=== PATIENT | female | born 1940 | race Caucasian/White ===

== ENCOUNTER 2017-11-04 08:50 | Emergency (ER) | payer MEDICARE, BC ==
[2017-11-04] MEDS: Sodium Chloride 0.9% 1,000 ML IV SCH ×2 (09:51→10:53)
--- NOTE | 2017-11-04 09:54 | EDM.PDOC ---
ED HPI GENERAL MEDICAL PROBLEM - General Chief Complaint: Gastrointestinal Problem Stated Complaint: DIAHRREA/DEHYDRATED Time Seen by Provider: 11/04/17 09:50 Source of Information: Reports: Patient History Limitations: Reports: No Limitations - History of Present Illness INITIAL COMMENTS - FREE TEXT/NARRATIVE: pt arrived with ahistory of sig diarrhea since yesterday. She has been having about 5 stools per day. She has not been vomiting. Onset: Gradual, Other ( started on Friday. ) Duration: Hour(s): Location: Reports: Abdomen Associated Symptoms: Reports: No Other Symptoms, Other ( diarrhea. ) Lower Abdominal Pain Score (Numeric/FACES): 2 - Related Data Allergies Allergy/AdvReac Type Severity Reaction Status Date / Time No Known Allergies Allergy Verified 10/24/14 08:03 Home Meds: Home Meds Clopidogrel Bisulfate [Clopidogrel] 75 mg PO DAILY 11/04/17 [History] Ezetimibe 10 mg PO DAILY 11/04/17 [History] Metoprolol Succinate [Toprol XL] 25 mg PO DAILY 11/04/17 [History] Simvastatin [Zocor] 80 mg PO DAILY 11/04/17 [History] Past Medical History Cardiovascular History: Reports: Hypertension [employer] History: Reports: - Past Surgical History Cardiovascular Surgical History: Reports: Carotid Stents GI Surgical History: Reports: Hernia, Abdominal Musculoskeletal Surgical History: Reports: Knee Replacement Social & Family History - Tobacco Use Smoking Status *Q: Light Tobacco Smoker Years of Tobacco use: 50 Packs/Tins Daily: 1 - Caffeine Use Caffeine Use: Reports: Coffee - Recreational Drug Use Recreational Drug Use: No ED ROS GENERAL - Review of Systems Review Of Systems: See Below Constitutional: Reports: No Symptoms HEENT: Reports: No Symptoms Respiratory: Reports: No Symptoms Cardiovascular: Reports: No Symptoms Endocrine: Reports: No Symptoms GI/Abdominal: Reports: Diarrhea ED EXAM, GI/ABD - Physical Exam Exam: See Below Text/Narrative:: pt arrived after having diarrhea since last friday. She is feeling on the dry side. Exam Limited By: No Limitations General Appearance: Alert, Mild Distress, Other ( Pt is having 5-6 stools per day. ) Ears: Normal TMs Nose: Normal Inspection Throat/Mouth: Normal Inspection Head: Atraumatic Neck: Normal Inspection Respiratory/Chest: No Respiratory Distress Cardiovascular: Regular Rate, Rhythm GI/Abdominal Exam: Soft, Non-Tender (Female) Exam: Deferred Rectal (Female) Exam: Deferred Back Exam: Normal Inspection Extremities: Normal Inspection Neurological: Alert, Oriented, Normal Cognition Psychiatric: Normal Affect Course - Vital Signs Last Recorded V/S: Last Vital Signs Temp 36.7 C 11/04/17 09:23 Pulse 86 11/04/17 09:23 Resp 16 11/04/17 09:23 BP 141/82 H 11/04/17 09:23 Pulse Ox 95 11/04/17 09:23 - Orders/Labs/Meds Orders: Active Orders 24 hr Category Date Time Status CLOSTRIDIUM DIFFICILE BY PCR [RM] Stat Lab 11/04/17 09:56 Ordered UA W/MICROSCOPIC [URIN] Urgent Lab 11/04/17 09:43 Ordered Sodium Chloride 0.9% [Normal Saline] 1,000 ml Med 11/04/17 09:45 Active IV ASDIRECTED Sodium Chloride 0.9% [Normal Saline] 1,000 ml Med 11/04/17 10:45 Active IV ASDIRECTED Medication Orders Sodium Chloride (Normal Saline) 1,000 mls @ 999 mls/hr IV ASDIRECTED DEN Last Infusion: 11/04/17 10:52 Dose: 999 mls/hr Admin: 11/04/17 09:51 Dose: 999 mls/hr Sodium Chloride (Normal Saline) 1,000 mls @ 999 mls/hr IV ASDIRECTED DEN Last Admin: 11/04/17 10:53 Dose: 999 mls/hr Labs: Laboratory Tests 11/04/17 11/04/17 11/04/17 Range/Units 09:49 09:49 10:14 WBC 5.7 (4.5-11.0) K/uL RBC 4.69 (3.30-5.50) M/uL Hgb 15.2 H (12.0-15.0) g/dL Hct 42.3 (36.0-48.0) % MCV 90 (80-98) fL MCH 32 H (27-31) pg MCHC 36 (32-36) % Plt Count 265 (150-400) K/uL Neut % (Auto) 73 H (36-66) % Lymph % (Auto) 17 L (24-44) % [place] % (Auto) 9 H (2-6) % Eos % (Auto) 1 L (2-4) % Baso % (Auto) 0 (0-1) % Sodium 136 L (140-148) mmol/L Potassium 3.3 L (3.6-5.2) mmol/L Chloride 98 L (100-108) mmol/L Carbon Dioxide 23 (21-32) mmol/L Anion Gap 18.3 H (5.0-14.0) mmol/L BUN 14 (7-18) mg/dL Creatinine 0.8 (0.6-1.0) mg/dL Est Cr Clr Drug Dosing 46.58 mL/min Estimated GFR (MDRD) > 60 (>60) Glucose 99 (74-106) mg/dL Calcium 8.7 (8.5-10.1) mg/dL Total Bilirubin 0.5 (0.2-1.0) mg/dL AST 56 H (15-37) U/L ALT 91 H (12-78) U/L Alkaline Phosphatase 66 (46-116) U/L Total Protein 7.0 (6.4-8.2) g/dL Albumin 3.6 (3.4-5.0) g/dL Globulin 3.4 (2.3-3.5) g/dL Albumin/Globulin Ratio 1.1 L (1.2-2.2) Lipase 83 (73-393) U/L Meds: Medications Generic Name Dose Route Start Last Admin Trade Name Freq PRN Reason Stop Dose Admin Sodium Chloride 1,000 mls @ 999 mls/hr 11/04/17 09:45 11/04/17 10:52 Normal Saline IV Infused ASDIRECTED DEN Infusion Sodium Chloride 1,000 mls @ 999 mls/hr 11/04/17 10:45 11/04/17 10:53 Normal Saline IV 999 mls/hr ASDIRECTED DEN Administration Discontinued Medications Generic Name Dose Route Start Last Admin Trade Name Freq PRN Reason Stop Dose Admin Loperamide HCl 4 mg 11/04/17 10:15 11/04/17 10:39 Imodium PO 11/04/17 10:16 4 mg ONETIME ONE Administration - Re-Assessments/Exams Free Text/Narrative Re-Assessment/Exam: 11/04/17 11:18 pt did show mild dehydration, She has a positive clostrium diff. Departure - Departure Time of Disposition: 11:19 Disposition: Home, Self-Care 01 Condition: Fair Clinical Impression: Clostridium difficile diarrhea - Discharge Information Referrals: Alice Argueta PA [Primary Care Provider] - Forms: ED Department Discharge Care Plan Goals: push fluids, eat lite until diarrhea improves. use yogurt or probiotic, vancomycin 250mg qid for 10 days, see regular in 5-6 days - My Orders Last 24 Hours: My Active Orders 11/04/17 09:43 UA W/MICROSCOPIC [URIN] Urgent 11/04/17 09:45 Sodium Chloride 0.9% [Normal Saline] 1,000 ml IV ASDIRECTED 11/04/17 09:56 CLOSTRIDIUM DIFFICILE BY PCR [RM] Stat 11/04/17 10:45 Sodium Chloride 0.9% [Normal Saline] 1,000 ml IV ASDIRECTED - Assessment/Plan Last 24 Hours: My Active Orders 11/04/17 09:43 UA W/MICROSCOPIC [URIN] Urgent 11/04/17 09:45 Sodium Chloride 0.9% [Normal Saline] 1,000 ml IV ASDIRECTED 11/04/17 09:56 CLOSTRIDIUM DIFFICILE BY PCR [RM] Stat 11/04/17 10:45 Sodium Chloride 0.9% [Normal Saline] 1,000 ml IV ASDIRECTED
[2017-11-04] MEDS ORDERED: Loperamide 2 MG Cap PO ONE (10:15)
[2017-11-04] MEDS ORDERED: Sodium Chloride 0.9% 1,000 ML IV SCH (10:45)
== END 2017-11-04 12:16 | disposition home or self-care (01) ==
LOC: JP.ED 08:50
DX: A04.72 Enterocolitis due to Clostridium difficile, not specified as recurrent (principal); F17.210 Nicotine dependence, cigarettes, uncomplicated; I10 Essential (primary) hypertension; Z79.899 Other long term (current) drug therapy
CPT/HCPCS: 36415; 80053; 83690; 85025; 87493; 96360; 96361; 99284; A9270; J7040

== ENCOUNTER 2021-09-03 06:41 | Day surgery (SDC) | payer MEDICARE, BC ==
[2021-09-03] MEDS ORDERED: Midazolam 1 MG/ML 2 ML SDV ONE (07:05)
[2021-09-03] MEDS ORDERED: Propofol 200 MG/20 ML SDV ONE ×2 (07:05→10:11)
[2021-09-03] MEDS ORDERED: fentaNYL 100 MCG/2 ML SDV ONE (07:05)
[2021-09-03] MEDS ORDERED: Acetaminophen 500 MG Tab PO ONE (07:45)
[2021-09-03] MEDS ORDERED: Dextrose 5%-Lactated Ringers 1,000 ML IV SCH (08:30)
[2021-09-03] MEDS ORDERED: ceFAZolin 2 GM in Premix Bag 1 BAG IV ONE (08:45)
[2021-09-03] MEDS ORDERED: ceFAZolin 2 GM in Sodium Chloride 0.9% 100 ML IV ONE (08:45)
[2021-09-03] MEDS ORDERED: Lidocaine 1% with EPINEPHrine 1:100,000 50 ML MDV ONE (08:47)
[2021-09-03] MEDS ORDERED: Bupivacaine 0.5%/EPINEPHrine 1:200,000 50 ML MDV ONE (08:47)
[2021-09-03] MEDS ORDERED: Bupivacaine 0.5% 50 ML MDV ONE (08:47)
[2021-09-03] MEDS ORDERED: Ondansetron 4 MG/2 ML SDV ONE (09:09)
[2021-09-03] MEDS ORDERED: Dexamethasone 4 MG/ML SDV ONE (09:09)
[2021-09-03] MEDS ORDERED: fentaNYL 100 MCG/2 ML SDV IVPUSH ONE (10:24)
[2021-09-03] MEDS ORDERED: HYDROmorphone 2 MG Tab PO PRN (11:32)
== END 2021-09-03 12:30 | disposition home or self-care (01) ==
LOC: JP.SDS 06:41
PROVIDERS: ATTEND Surgery
DX: K40.30 Unilateral inguinal hernia, with obstruction, without gangrene, not specified as recurrent (principal); F17.200 Nicotine dependence, unspecified, uncomplicated; I25.10 Atherosclerotic heart disease of native coronary artery without angina pectoris
CPT/HCPCS: 36415; 80053; 85027; 88302; A9270-GY; C1713; C1781; J0690; J1100; J2020; J2250; J2405; J2704; J3010; J3490; J7121